=== PATIENT | male | born 1955 | race Caucasian/White ===

== ENCOUNTER 2017-08-15 06:07 | Emergency (ER) | payer MEDICAID ==
[~2017-08-15] VITALS: Ht 172.7 cm; Wt 72.7 kg
[2017-08-15 06:35] VITALS: BP_DIAS 92
[2017-08-15 06:43] LABS: ANION GAP 6 mmol/L (8-16); BASOPHILS % (AUTO) 0.4 % (0.0-2.0); CARBON DIOXIDE 31 mmol/L (22-29); CHLORIDE 105 mmol/L (98-107); CREATININE 1.05 mg/dL (0.60-1.30); EOSINOPHILS % (AUTO) 1.8 % (1.0-6.0); GLOMERULAR FILTR. RATE CALC > 60 mL/min (>60); HEMATOCRIT 45.4 % (41-53); HEMOGLOBIN 15.5 g/dL (13.5-17.5); LYMPHOCYTES # (AUTO) 3.6 K/uL (1.0-4.8); LYMPHOCYTES % (AUTO) 43.2 % (22.0-44.0); MEAN CORPUSCULAR HEMOGLOBIN 31.3 pg (26.0-34.0); MEAN CORPUSCULAR HGB CONC 34.2 G/dL (31.0-37.0); MEAN CORPUSCULAR VOLUME 91 fL (80-100); MONOCYTES # (AUTO) 0.8 K/uL (0.1-1.0); MONOCYTES % (AUTO) 8.9 % (2.0-9.0); NEUTROPHILS # (AUTO) 3.9 K/uL (1.8-7.7); NEUTROPHILS % (AUTO) 45.7 % (40.0-70.0); PLATELET COUNT (AUTO) 215 K/uL (150-450); POTASSIUM 4.1 mmol/L (3.5-5.1); RED BLOOD CELL COUNT(AUTO) 4.97 MIL/uL (4.50-5.90); SODIUM SERUM 142 mmol/L (136-145); UREA NITROGEN, BLOOD 17 mg/dL (7-18); WHITE BLOOD COUNT (AUTO) 8.4 K/uL (4.5-11.0)
[2017-08-15 06:45] LABS: APPEARANCE,URINE CLEAR (CLEAR); GLUCOSE, URINE (UA) NEGATIVE (NEGATIVE); KETONES,URINE NEGATIVE (NEGATIVE); LEUKOCYTE ESTERASE ,URINE NEGATIVE (NEGATIVE); OCCULT BLOOD,URINE NEGATIVE (NEGATIVE); PROTEIN,URINE NEGATIVE (NEGATIVE)
[2017-08-15] MEDS ORDERED: KETOROLAC TROMETHAMINE 30 MG/ML VIAL IVP ONE (06:45)
[2017-08-15 06:51] LABS: ADD UA MICROSCOPIC NO
[2017-08-15 06:53] LABS: ALANINE AMINOTRANSFERASE 67 U/L (12-78); ASPARTATE AMINOTRANSFERASE 40 U/L (15-37); BILIRUBIN,TOTAL 0.5 mg/dL (0.1-1.0)
[2017-08-15] MEDS ORDERED: IOVERSOL 350 MG/ML 100 ML VIAL ONE (08:12)
[2017-08-15 09:22] VITALS: BP_SYST 175
[2017-08-15] MEDS ORDERED: DiphenhydrAMINE HCL 25 MG CAPSULE PO ONE (10:15)
== END 2017-08-15 10:11 | disposition home or self-care (01) ==
LOC: EMS 06:08
DX: N13.30 Unspecified hydronephrosis (principal); I10 Essential (primary) hypertension; K59.00 Constipation, unspecified
CPT/HCPCS: 36415; 74177; 80053; 81003; 83690; 85025; 96374; 99285; J1885; Q9967

== ENCOUNTER 2022-08-03 23:16 | Emergency (ER) | payer MEDICARE, OTHER ==
[~2022-08-03] VITALS: Ht 172.7 cm; Wt 77.3 kg
[2022-08-03 23:21] VITALS: BP 152/85
[2022-08-04 00:08] LABS: COVID AG,FIA SOURCE NASOPHARYNGEAL
[2022-08-04] MEDS ORDERED: AMOX TR/POT CLAV 875 MG/125 MG TABLET PO ONE (00:15)
[2022-08-04] MEDS ORDERED: IBUPROFEN 600 MG TABLET PO ONE (00:15)
[2022-08-04] MEDS ORDERED: ACETAMINOPHEN 500 MG TABLET PO ONE (00:15)
[2022-08-04 00:50] LABS: INFLUENZA TYPE A NEGATIVE FOR TYPE A (NEGATIVE); INFLUENZA TYPE B NEGATIVE FOR TYPE B (NEGATIVE)
[2022-08-04] MEDS ORDERED: AMOX1TAB16 PO (01:46)
== END 2022-08-04 01:00 | disposition home or self-care (01) ==
LOC: EMS 23:17
DX: J32.9 Chronic sinusitis, unspecified (principal); H66.91 Otitis media, unspecified, right ear; I10 Essential (primary) hypertension; Z20.822 Contact with and (suspected) exposure to COVID-19
CPT/HCPCS: 70450; 87430; 87804; 99284

== ENCOUNTER 2022-08-08 06:43 | Emergency (ER) | payer MEDICARE, OTHER ==
[~2022-08-08] VITALS: Ht 172.7 cm; Wt 77.0 kg
[~2022-08-08 06:43] MED LIST: AMOX1TAB16 PO
[2022-08-08] MEDS ORDERED: ACETAMINOPHEN 500 MG TABLET PO ONE (07:15)
[2022-08-08] MEDS ORDERED: METOCLOPRAMIDE HCL 5 MG/ML 2 ML VIAL IVP ONE (07:15)
[2022-08-08] MEDS ORDERED: DiphenhydrAMINE HCL 50 MG/ML VIAL IVP ONE (07:15)
[2022-08-08] MEDS ORDERED: SODIUM CHLORIDE 0.9% 100 ML ONE (07:29)
[2022-08-08] MEDS ORDERED: IOHEXOL 300 MG/ML 100 ML VIAL ONE (07:29)
[2022-08-08 07:59] LABS: BASOPHILS % (AUTO) 0.7 % (0.0-2.0); HEMATOCRIT 40.8 % (41-53); HEMOGLOBIN 13.7 g/dL (13.5-17.5); LYMPHOCYTES # (AUTO) 2.5 K/uL (1.0-4.8); LYMPHOCYTES % (AUTO) 19.7 % (22.0-44.0); MEAN CORPUSCULAR HEMOGLOBIN 30.7 pg (26.0-34.0); MEAN CORPUSCULAR HGB CONC 33.6 G/dL (31.0-37.0); MEAN CORPUSCULAR VOLUME 91 fL (80-100); MONOCYTES # (AUTO) 1.1 K/uL (0.1-1.0); MONOCYTES % (AUTO) 8.7 % (2.0-9.0); NEUTROPHILS # (AUTO) 8.7 K/uL (1.8-7.7); NEUTROPHILS % (AUTO) 69.9 % (40.0-70.0); PLATELET COUNT (AUTO) 383 K/uL (150-450); RED BLOOD CELL COUNT(AUTO) 4.47 MIL/uL (4.50-5.90); RED CELL DISTRIBUTION WIDTH 12.9 % (11.5-14.5)
[2022-08-08 08:58] LABS: ANION GAP 9 mmol/L (8-16); CALCIUM, TOTAL 9.6 mg/dL (8.8-10.5); CARBON DIOXIDE 28 mmol/L (22-29); CHLORIDE 100 mmol/L (98-107); CREATININE 0.98 mg/dL (0.60-1.30); GLOMERULAR FILTR. RATE CALC > 60 mL/min (>60); GLUCOSE,RANDOM 138 mg/dL (70-110); POTASSIUM 4.1 mmol/L (3.5-5.1); SODIUM SERUM 137 mmol/L (136-145); UREA NITROGEN, BLOOD 17 mg/dL (7-18)
[2022-08-08 09:04] LABS: ALANINE AMINOTRANSFERASE 38 U/L (12-78); ALBUMIN 3.4 g/dL (3.4-5.0); ALKALINE PHOSPHATASE 67 U/L (46-116); ASPARTATE AMINOTRANSFERASE 23 U/L (15-37); BILIRUBIN,TOTAL 0.5 mg/dL (0.1-1.0); TOTAL PROTEIN, SERUM 9.7 g/dL (6.4-8.2)
[2022-08-08] MEDS ORDERED: LEVOFLOXACIN 750 MG/D5% WATER 150 ML IV ONE (11:15)
[2022-08-08 12:12] LABS: COVID AG,FIA SOURCE NASOPHARYNGEAL
[2022-08-08 12:48] LABS: INFLUENZA TYPE A NEGATIVE FOR TYPE A (NEGATIVE); INFLUENZA TYPE B NEGATIVE FOR TYPE B (NEGATIVE)
[2022-08-08] MEDS ORDERED: KETOROLAC TROMETHAMINE 30 MG/ML VIAL IVP ONE (13:30)
[2022-08-08 14:15] VITALS: BP 132/75
== END 2022-08-08 14:55 | disposition short-term general hospital (02) ==
LOC: EMS 06:44
DX: J32.9 Chronic sinusitis, unspecified (principal); I10 Essential (primary) hypertension; Z20.822 Contact with and (suspected) exposure to COVID-19
CPT/HCPCS: 99285; 70470; 96365; 96375; 87426; 80053; 85025; 87804; 36415; 70487; J1200; J1885; J2765; J1956; J7050; Q9967